=== PATIENT | female | born 1980 ===

== ENCOUNTER → 2024-10-28 06:51 | Outpatient (CLI) | payer OTHER ==
[2024-10-28 08:43] LABS: HEMATOCRIT 33.8 % (36.0-45.00); MEAN CELL VOLUME 88.5 fL (80.00-100.00); MEAN CORPUSCULAR HEMOGLOBIN 31.4 pg (27.00-32.0); MEAN CORPUSCULAR HGB CONC 35.4 g/dl (32.0-36.0); PLATELET COUNT 278 K/uL (150-450); RED BLOOD COUNT 3.82 M/uL (4.00-6.00); RED CELL DISTRIBUTION WIDTH 13.6 % (11.5-14.5)
[2024-10-28 09:09] LABS: COL EPI 60 SECONDS (82-175)
[2024-10-28 09:11] LABS: INR 0.97; PARTIAL THROMBOPLASTIN TIME 25.7 SECONDS (22.0-34.0); PROTHROMBIN TIME 10.6 SECONDS (9.0-11.5)
[2024-10-28 09:51] LABS: MANUAL PLATELET COUNT 380; PLATELET ESTIMATE NORMAL (NORMAL)
[2024-10-28 09:58] LABS: % SATURACION 11.1 % (15-50); BILIRUBIN TOTAL 0.56 mg/dL (0.3-1.2); CALCIUM 9.1 mg/dL (8.5-10.1); CREATININE SERUM 0.76 mg/dL (0.55-1.02); FERRITIN 9.2 NG/ML (8-252); GFR 81.93; GLOBULINA 3.2 G/DL (2.4-3.5); POTASSIUM 3.58 mEq/L (3.5-5.1); TOTAL PROTEIN 7.2 gm/dL (6.4-8.2); TSH 2.56 uIU/mL (0.358-3.74)
[2024-10-28 11:49] LABS: FOLIC ACID 14.17 ng/ml (4.78-20)
== END | disposition home or self-care (01) ==
LOC: LAB 06:51
PROVIDERS: ATTEND Internal Medicine Hematology & Oncology
DX: D50.8 Other iron deficiency anemias (principal); N92.0 Excessive and frequent menstruation with regular cycle; B96.81 Helicobacter pylori [H. pylori] as the cause of diseases classified elsewhere; R79.9 Abnormal finding of blood chemistry, unspecified; I10 Essential (primary) hypertension; R74.02 Elevation of levels of lactic acid dehydrogenase [LDH]; K76.89 Other specified diseases of liver; D55.0 Anemia due to glucose-6-phosphate dehydrogenase [G6PD] deficiency; D51.1 Vitamin B12 deficiency anemia due to selective vitamin B12 malabsorption with proteinuria; E03.8 Other specified hypothyroidism; E06.3 Autoimmune thyroiditis; D68.8 Other specified coagulation defects